=== PATIENT | female | born 1980 | race Caucasian/White ===

== ENCOUNTER 2023-09-04 15:35 | Inpatient (IN) | payer BC, MEDICARE ==
[~2023-09-04] VITALS: Ht 167.6 cm; Wt 84.0 kg
[~2023-09-04 15:35] MED LIST: ACYC-129 PO; ALPR0.5T9 PO; FLUC100T PO; LAMO25TA5 PO; LITH300T5 PO; OLAN2.5T28 PO; OLAN5TAB75 PO
[2023-09-04] MEDS ORDERED: acetaminophen 325mg tablet PO PRN ×2 (21:50)
[2023-09-04] MEDS ORDERED: loperamide 2mg capsule PO PRN (21:50)
[2023-09-04] MEDS ORDERED: mag hydrox/Alum hydrox/simeth 30ml oral suspension PO PRN (21:50)
[2023-09-04] MEDS ORDERED: magnesium hydroxide 30ml (MOM) UD suspension PO PRN (21:50)
[2023-09-05 01:47] VITALS: RESP 16; O2SAT 99
[2023-09-05 01:53] VITALS: BP 146/81; PULSE 72; RESP 16; TEMP 97.8; O2SAT 99
[2023-09-05] MEDS: LORazepam 1 MG tablet PO PRN ×3 (02:46→20:07)
--- NOTE | 2023-09-05 03:00 | NUR ---
Client had 1 mg Ativan Tab PO at 22:30 and 03:00.
[2023-09-05] MEDS ORDERED: IBUP-1986 PO (03:04)
--- NOTE | 2023-09-05 05:14 | NUR ---
ADMIT NOTE: Client was transferred from [facility] and arrived on the unit at 21:20. She was extremely anxious about admission and voiced many paranoid delusions. Client asked "Am I ever going to be able to leave? Are you all going to keep me here forever?' Client watched someone walking in the luna and asked "Am I going to look like him?" She was hesitant to take 1 mg Ativan Tab PO for anxiety and stated "Will I ever wake up again?" Client has a longstanding mental health history and has been admitted to [facility], [place], and [facility]. She is pleasant, but guarded. Client was admitted for depression, but paranoid delusions and anxiety seem more compelling at this time. Client took a shower and changed into green scrubs, had a snack, and went to sleep after admit assessment.
[2023-09-05 07:00] VITALS: RESP 16; O2SAT 99
[2023-09-05 08:00] VITALS: BP 127/82; PULSE 106; RESP 16; TEMP 98.8; O2SAT 99
[2023-09-05 09:26] LABS: CHOL/HDL RATIO 4.4 (0.00-4.99); CHOLESTEROL 155 MG/DL (0-200); HDL CHOLESTEROL 35 MG/DL (35-60); LDL CHOLESTEROL 96 MG/DL (50-100); TRIGLYCERIDES 117 MG/DL (20-135)
[2023-09-05 09:29] LABS: HEMOGLOBIN A1C 5.3 % (4.5-6.2)
--- NOTE | 2023-09-05 16:23 | NUR ---
Nursing Progress Note Patient was transferred from [facility]. She was extremely anxious about admission and voiced many paranoid delusions. Patient asked "Am I ever going to be able to leave? Are you all going to keep me here forever?' Patient watched someone walking in the luna and asked "Am I going to look like him?" She was hesitant to take 1 mg Ativan Tab PO for anxiety and stated "Will I ever wake up again?" Patient has a longstanding mental health history and has been admitted to [facility], [place], and [facility]. She is pleasant, but guarded. Patient was admitted for depression, but paranoid delusions and anxiety seem more compelling at this time. Patient took a shower and changed into green scrubs, had a snack, and went to sleep after admit assessment. Interventions: Maintained a safe and supportive environment, attempted to orient to reality, provided clear and simple instructions, monitored behaviors and provided intervention as needed, provided active listening and positive encouragement, and maintained Q 15min safety checks. Response: This morning patient was very anxious and emotional. It took 2 phlebotomists and 1 RN 20 minutes to have her blood drawn. Patient then asked for some anxiety medication. RN gave patient 1 mg Ativan in a med cup. Patient asks RN. "Is this going to hurt me?" RN explained that the med would help her relax and explains she had the same medication around 6 hours prior. Patient tearful and frightened. Patient finally took the medication. As she was taking med, the RN turned her head and coughed. Patient fearfully asked why RN coughed while she was taking her med. RN stated "Because I have a cough." Patient spoke to her family all day today and by the afternoon patient was happy and appeared more normal. Patient is going to take a shower after another patient is done. Plan : Pt. requires interruption of current crisis, medication adjustments, and a safe and supportive environment.
[2023-09-05 19:17] VITALS: RESP 18; O2SAT 99
[2023-09-05 19:20] VITALS: BP 110/92; PULSE 124; RESP 18; TEMP 98.1; O2SAT 99
--- NOTE | 2023-09-06 00:01 | NUR ---
Nursing Progress Note Problem; Patient was transferred from [facility]. She was extremely anxious about admission and voiced many paranoid delusions. Patient asked "Am I ever going to be able to leave? Are you all going to keep me here forever?' Patient watched someone walking in the luna and asked "Am I going to look like him?" She was hesitant to take 1 mg Ativan Tab PO for anxiety and stated "Will I ever wake up again?" Patient has a longstanding mental health history and has been admitted to [facility], [place], and [facility]. Interventions: Maintained a safe and supportive environment, attempted to orient to reality, provided clear and simple instructions, monitored behaviors and provided intervention as needed, provided active listening and positive encouragement, and maintained Q 15min safety checks. Educated to Ativan and dose given at HS per her request. She is aware that she can have it twice in 24 hours. Discussed plan of care and assessed her ability to function on the unit and formulate a plan for discharge. Response: The patient was friendly and pleasant when approached for the evening assessment. She is able to make her needs known and is making calls to family members independently. She reports that this evening she is doing "way better" than on admit because she had a dose of ativan in the morning and added, "Ativan got me back on the ground" She admits to mild paranoia that people are talking about her. She denies thoughts to harm herself or others. She denies voices. Her discharge plan is to return home with her and children and reconnect with Dr. Mccullough for follow up. Plan: Continue plan of care.
[2023-09-06 08:00] VITALS: BP 115/83; PULSE 99; RESP 16; TEMP 98.1; O2SAT 99
[2023-09-06] MEDS: risperiDONE 0.5mg tablet PO SCH ×2 (13:33→21:07)
[2023-09-06] MEDS: LORazepam 1 MG tablet PO PRN (14:03)
--- NOTE | 2023-09-06 16:58 | NUR ---
Nursing Progress Note: Problem: Client was transferred from [facility] and arrived on the unit at 21:20. She was extremely anxious about admission and voiced many paranoid delusions. Client asked "Am I ever going to be able to leave? Are you all going to keep me here forever?' Client watched someone walking in the luna and asked "Am I going to look like him?" She was hesitant to take 1 mg Ativan Tab PO for anxiety and stated "Will I ever wake up again?" Interventions: introduced self, maintained a safe and supportive environment, ensured contract for safety, provided clear and simple instructions, attempted to orient to reality, provided active listening and positive encouragement, monitored behaviors and need for intervention, and maintained Q 15 min safety checks. Response: Pt. was up for breakfast and vitals. She has no scheduled meds at this time. Asked her how she was feeling, she said, Umm, fine. What do you mean? Asked her what had brought her here, she states, I think I just got upset. Asked what had upset her, she just stared at me. Asked her again if she knew what had upset her, she said I dont know. Asked her if she was having any SI, she said, No never and denies HI as well. Asked her if she had a discharge plan she shook her head yes. Asked her what it was and she just stared at me. Asked her if she had a home to return to, she said, Yes I do, wait is there a reason I cant go back to my house? She later had an interview with the doctor, meds were ordered and when administering first dose she asked, Am I going to after I take this? Reassured her she was going to be ok, she states, I just feel like I am going to , its been nothing but stress since August 25. I had a stressful event happen in my life she then stopped talking and stared at me, told her if she didnt wanna talk about it was fine she said Whats fine. Talk about what? The football game on TV was talking about giving someone a concussion, she said, See right there, I think theyre talking about me getting a concussion. Am I going to get one? Am I physically safe here? She then becomes tearful stating, I dont get it, why is this happening? I am so scared. I know the things I am thinking arent right and I sound crazy but the thoughts seem right to me. She is labile, has thought insertion and thought blocking, as well as paranoia. -Appearance: casually groomed -Eye contact: fair -Mood: calm -Affect: labile -Speech: WNL -Thought Process: impaired -A/V/H: denies -SI/HI: denies -ADLs: independent with little prompting -Insight: fair -Judgement: poor Plan: Pt. continues to require a safe and structured environment for further stabilization. Her current symptoms would make her a high risk for safety and re-hospitalization if discharged at this time.
[2023-09-06 19:00] VITALS: RESP 17; O2SAT 99
[2023-09-06 20:00] VITALS: BP 124/75; PULSE 79; RESP 17; TEMP 97.2; O2SAT 93
[2023-09-07] MEDS: LORazepam 1 MG tablet PO PRN ×2 (00:28→22:57)
--- NOTE | 2023-09-07 05:33 | NUR ---
Nursing Progress Note: Problem: Client was transferred from [facility] and arrived on the unit at 21:20. She was extremely anxious about admission and voiced many paranoid delusions. Client asked "Am I ever going to be able to leave? Are you all going to keep me here forever?' Client watched someone walking in the luna and asked "Am I going to look like him?" She was hesitant to take 1 mg Ativan Tab PO for anxiety and stated "Will I ever wake up again?" Interventions: introduced self, maintained a safe and supportive environment, ensured contract for safety, provided clear and simple instructions, attempted to orient to reality, provided active listening and positive encouragement, monitored behaviors and need for intervention, and maintained Q 15 min safety checks. Response: Pt received in her room. Pt was anxious and needing clarification of her voluntary status. Pt was anxious and needed reassurance with her discharge plan. Pt states she will be going home with her and he is preparing for him to come home. Pt states she has multiple stressors in her life but was guarded in the details. She states she in school at this time. Pt states she is scared. She requested blog writer to call her to tell him I love you and Im scared, but later changed her mind. Her plan is to go home when she is stable. She was tearful multiple times during interview but was guarded in the content. She requested to obtain some phone numbers from her cell phone and blog writer provided. She will be needing to contact her school to update them on her current health status. At 2330hours, patient woke up from a nightmare. She stated that she thought her roommate had fallen and checked on her. She needed reassurance if it was ok to check on her roommate. She stated she was anxious and practiced some deep breathing. She was offered Ativan but then refused the medication. She laid down and attempted to go back to sleep. She told the clinical psychologist licensed that she wasnt able to sleep approximately 0020hours. Agriculture Specialist provided Ativan as ordered and medication was effective. Plan: Pt. continues to require a safe and structured environment for further stabilization. Her current symptoms would make her a high risk for safety and re-hospitalization if discharged at this time.
[2023-09-07 07:00] VITALS: RESP 16; O2SAT 98
[2023-09-07] MEDS: risperiDONE 0.5mg tablet PO SCH ×2 (07:29→20:48)
[2023-09-07 08:00] VITALS: BP 130/80; PULSE 87; RESP 16; TEMP 97.2; O2SAT 98
--- NOTE | 2023-09-07 16:39 | NUR ---
Nursing Progress Note: Problem: Client was transferred from [facility] and arrived on the unit at 21:20. She was extremely anxious about admission and voiced many paranoid delusions. Client asked "Am I ever going to be able to leave? Are you all going to keep me here forever?' Client watched someone walking in the luna and asked "Am I going to look like him?" She was hesitant to take 1 mg Ativan Tab PO for anxiety and stated "Will I ever wake up again?" Interventions: Maintained a safe and supportive environment, ensured contract for safety, provided clear and simple instructions, attempted to orient to reality, provided active listening and positive encouragement, monitored behaviors and need for intervention, and maintained Q 15 min safety checks. Response: Pt. was up for breakfast and vitals. She showered this morning before breakfast. Took meds with some hesitation, cont. to ask, Am I going to be ok taking these? Is something going to happen to me? and are these going to help me get better so I can go home? She then took her medications. Afterwards she said, See, hear all the people talking out there, I am feeling like everything being said by everyone is about me, that they are directing it all towards me, like everyone is talking about me, its not true right? They are just talking to each other and none of it has to do with me right? Asked her if she felt like thoughts are put in her head, she said Ya, like something telling me that everyone is talking about me, all the conversations I hear are about me, but theyre not right? This is a normal feeling for what I am going through right now right? She is friendly, paranoid and has some thought insertion with fair insight into it not being reality. She is less tearful, and more aware of her situation today. -Appearance: casually groomed -Eye contact: good -Mood: anxious at times -Affect: congruent with mood -Speech: WNL -Thought Process: impaired -Thought content: paranoia, thought insertion -A/V/H: denies -SI/HI: denies -ADLs: independent -Insight: fair -Judgement: poor
[2023-09-07 19:00] VITALS: RESP 16; O2SAT 100
[2023-09-07 20:00] VITALS: BP 114/73; PULSE 109; RESP 16; TEMP 98.1; O2SAT 100
--- NOTE | 2023-09-08 05:31 | NUR ---
Nursing Progress Note: Problem: Client was transferred from [facility] and arrived on the unit at 21:20. She was extremely anxious about admission and voiced many paranoid delusions. Client asked "Am I ever going to be able to leave? Are you all going to keep me here forever?' Client watched someone walking in the luna and asked "Am I going to look like him?" She was hesitant to take 1 mg Ativan Tab PO for anxiety and stated "Will I ever wake up again?" Interventions: introduced self, maintained a safe and supportive environment, ensured contract for safety, provided clear and simple instructions, attempted to orient to reality, provided active listening and positive encouragement, monitored behaviors and need for intervention, and maintained Q 15 min safety checks. Response: Pt received in her room. She is in a better mood. She states she will be discharging tomorrow to her home with her . She briefly cried because she stated was scared. She states she will be planning to talk with Dr. Garcia tomorrow with her to formulate a plan so she doesnt return prematurely. She states her previous hospitalization, she left too soon and quickly returned. She attended snack this evening. She was compliant with her medications. She requested her Ativan this shift and meds were effective. She was having difficulty staying asleep and requested tea. She was able to resume sleeping. Plan: Pt. continues to require a safe and structured environment for further stabilization. Her current symptoms would make her a high risk for safety and re-hospitalization if discharged at this time.
[2023-09-08 07:00] VITALS: RESP 16; O2SAT 98
[2023-09-08] MEDS: risperiDONE 0.5mg tablet PO SCH (07:22)
[2023-09-08 07:40] LABS: HBSAG SCREEN Negative (Negative); HEP B CORE AB, IGM Negative (Negative); HEP B CORE AB, TOT Negative (Negative)
[2023-09-08 08:00] VITALS: BP 112/70; PULSE 86; RESP 16; TEMP 98.1; O2SAT 98
[2023-09-08] MEDS ORDERED: RISP1TAB98 PO (11:25)
[2023-09-08] MEDS ORDERED: LAMO25TA5 PO (11:25)
[2023-09-08] MEDS ORDERED: LITH300T5 PO (11:25)
[2023-09-08] MEDS ORDERED: ATI1T PO (11:25)
--- NOTE | 2023-09-08 15:42 | NUR ---
Nursing Progress Note: Problem: Client was transferred from [facility] and arrived on the unit at 21:20. She was extremely anxious about admission and voiced many paranoid delusions. Client asked "Am I ever going to be able to leave? Are you all going to keep me here forever?' Client watched someone walking in the luna and asked "Am I going to look like him?" She was hesitant to take 1 mg Ativan Tab PO for anxiety and stated "Will I ever wake up again?" Interventions: Maintained a safe and supportive environment, ensured contract for safety, provided clear and simple instructions, attempted to orient to reality, provided active listening and positive encouragement, monitored behaviors and need for intervention, and maintained Q 15 min safety checks. Response: Pt. was up for breakfast and vitals. Spoke with her at bedside, asked her how she was doing she stated, I am ok. Supposed to go home today. She then got tearful. Asked her why she was crying when talking about going home she said, I am scared to go back because of the uncertainty and hoping that all gets fixed. Asked her what she was referring to when she says all gets fixed she said, Marital things, me and my are trying to put it aside and got to therapy. Asked her to elaborate, she said, Well she paused for a long period of time staring at me then said, I have been feeling like he is cheating or has cheated. For a while I have noticed different things about him, but when I try to talk to him about it he says no he didnt. I am insecure and can be jealous, I want to believe him but for some reason I dont. The things I notice arent his normal things. Then my cousin that dies she was my support person. I would talk to her about everything and now I dont have her to talk to. My is a good father, he works hard and takes care of me and our kids, but I just feel he isnt being honest and I just want him to be honest. So he said we could do therapy, we are supposed to talk to Dr. Magallanes today and make a plan. I dont want to leave him and I want to work through whatever is going on but I feel like hes not being truthful. She took meds without complication, she is friendly and cooperative with care. Tearful at times, reports some anxiety but has been able to work through the episodes without PRNs. She has had no noted/reported bx issues. -Appearance: casually groomed -Eye contact: good -Mood: anxious and tearful at times -Affect: congruent with mood -Speech: WNL -Thought Process: intact -Thought content: future focused -A/V/H: denies -SI/HI: denies -ADLs: independent -Insight: fair -Judgement: fair Plan: Pt. discharged home at 1304. Belongings were inventoried with pt. and tech and signed for, nurse to go over discharged instructions and meds. Pt. verbalized understanding. Pt. picked up by to return home.
[2023-09-09] MEDS ORDERED: lamoTRIgine 25mg tablet PO SCH (08:00)
== END 2023-09-08 13:04 | disposition home or self-care (01) | DRG 885 ==
LOC: ADULT MH 15:35
PROVIDERS: ADMIT Psychiatry & Neurology Psychiatry; ATTEND Psychiatry & Neurology Psychiatry
DX: F31.30 Bipolar disorder, current episode depressed, mild or moderate severity, unspecified (principal); Z94.84 Stem cells transplant status; E11.9 Type 2 diabetes mellitus without complications; G24.4 Idiopathic orofacial dystonia; G35 Multiple sclerosis; I10 Essential (primary) hypertension; Z91.041 Radiographic dye allergy status; Z88.0 Allergy status to penicillin; Z98.82 Breast implant status
CPT/HCPCS: 36415; 80061; 83036; 86704; 86705; 87081; 87340

== ENCOUNTER 2024-11-21 19:56 | Inpatient (IN) | payer BC, MEDICARE ==
[~2024-11-21] VITALS: Ht 170.2 cm; Wt 79.2 kg
[~2024-11-21 19:56] MED LIST changes: -ACYC-129 PO; -ALPR0.5T9 PO; +ATI1T PO; -FLUC100T PO; -OLAN2.5T28 PO; -OLAN5TAB75 PO; +RISP-31 PO
[2024-11-22] MEDS ORDERED: lamoTRIgine 25mg tablet PO SCH (15:20)
[2024-11-22] MEDS: risperiDONE 2mg tablet PO SCH (16:05)
[2024-11-22] MEDS: lamoTRIgine 25mg tablet PO SCH (16:05)
[2024-11-22] MEDS: hydrOXYzine 25 MG tablet PO PRN (16:25)
[2024-11-22] MEDS ORDERED: lurasidone 20mg tablet PO SCH (17:00)
[2024-11-22 20:00] VITALS: BP 118/94; PULSE 101; RESP 20; TEMP 97.6; O2SAT 100
[2024-11-22] MEDS ORDERED: risperiDONE 2mg tablet PO SCH (20:00)
[2024-11-22] MEDS ORDERED: lithium carbonate 450mg CR tablet PO SCH (21:00)
[2024-11-22] MEDS: traZODone 50mg tablet PO PRN (22:33)
[2024-11-23] MEDS: LORazepam 1 MG tablet PO ONE ×2 (03:06→22:40)
[2024-11-23] MEDS ORDERED: acetaminophen 325mg tablet PO PRN ×2 (06:35→08:05)
[2024-11-23 07:30] VITALS: BP 122/80; PULSE 100; RESP 16; TEMP 97.6; O2SAT 99
[2024-11-23] MEDS: magnesium hydroxide 30ml (MOM) UD suspension PO PRN (07:49)
[2024-11-23] MEDS ORDERED: loperamide 2mg capsule PO PRN (08:05)
[2024-11-23] MEDS: lurasidone 20mg tablet PO SCH (17:11)
[2024-11-23 17:17] VITALS: BP 140/95; PULSE 104; RESP 14; O2SAT 100
[2024-11-23 20:00] VITALS: BP 126/82; PULSE 100; RESP 16; TEMP 97.9; O2SAT 100
[2024-11-23] MEDS: traZODone 150mg tablet PO SCH (20:16)
[2024-11-23] MEDS: risperiDONE 2mg tablet PO SCH (20:16)
[2024-11-24 07:00] VITALS: RESP 14
[2024-11-24] MEDS ORDERED: LORazepam 0.5 MG tablet PO SCH (08:00)
[2024-11-24] MEDS: LORazepam 0.5 MG tablet PO SCH (08:42)
[2024-11-24 08:50] VITALS: BP 120/90; PULSE 98; RESP 16; TEMP 99; O2SAT 96
[2024-11-24 09:09] LABS: CHOL/HDL RATIO 3.2 (0.00-4.99); CHOLESTEROL 148 MG/DL (0-200); HDL CHOLESTEROL 46 MG/DL (35-60); LDL CHOLESTEROL 91 MG/DL (50-100); TRIGLYCERIDES 64 MG/DL (20-135)
[2024-11-24 09:32] LABS: HEMOGLOBIN A1C 4.7 % (4.5-6.2)
[2024-11-24 19:00] VITALS: RESP 18; O2SAT 99
[2024-11-24 20:00] VITALS: BP 119/75; PULSE 115; RESP 18; TEMP 98.6; O2SAT 99
[2024-11-25 07:00] VITALS: RESP 15; O2SAT 99
[2024-11-25 07:18] VITALS: BP 125/69; PULSE 102; RESP 15; TEMP 98.2; O2SAT 99
[2024-11-25] MEDS: polyethylene glycol 3350 17gm powd pack PO SCH (10:12)
[2024-11-25 19:00] VITALS: RESP 20; O2SAT 96
[2024-11-25 19:45] VITALS: BP 125/80; PULSE 75; RESP 20; TEMP 98; O2SAT 96
[2024-11-25] MEDS: traZODone 50mg tablet PO SCH (20:45)
[2024-11-25] MEDS: LORazepam 0.5 MG tablet PO SCH (20:45)
[2024-11-26 07:00] VITALS: RESP 16; O2SAT 97
[2024-11-26 08:00] VITALS: BP 114/78; PULSE 99; RESP 16; TEMP 97.7; O2SAT 97
[2024-11-26 19:00] VITALS: RESP 16; O2SAT 98
[2024-11-26 20:00] VITALS: BP 118/77; PULSE 75; RESP 16; TEMP 97.3; O2SAT 96
[2024-11-26] MEDS: lamoTRIgine 25mg tablet PO SCH (21:27)
[2024-11-27 07:00] VITALS: RESP 16; O2SAT 96
[2024-11-27 08:15] VITALS: BP 117/74; PULSE 92; RESP 16; TEMP 98.4; O2SAT 96
[2024-11-27 19:48] VITALS: RESP 16; O2SAT 99
[2024-11-27 20:02] VITALS: BP 134/90; PULSE 98; RESP 16; TEMP 98.1; O2SAT 99
[2024-11-27 22:28] VITALS: BP 108/73; PULSE 61; RESP 18; TEMP 97.7; O2SAT 98
[2024-11-28 07:00] VITALS: BP 124/80; PULSE 94; RESP 16; TEMP 96.7; O2SAT 97
[2024-11-28] MEDS: LORazepam 0.5 MG tablet PO SCH (07:02)
[2024-11-28] MEDS ORDERED: TRAZ-251 PO (12:51)
[2024-11-28] MEDS ORDERED: HYDR-3686 PO (12:51)
[2024-11-28] MEDS ORDERED: RISP-32 PO (12:51)
[2024-11-28] MEDS ORDERED: LAMO25TA5 PO (12:51)
[2024-11-28] MEDS: hydrOXYzine 25 MG tablet PO SCH (13:05)
[2024-11-28 19:00] VITALS: RESP 18; O2SAT 96
[2024-11-28 19:45] VITALS: BP 145/83; PULSE 88; RESP 18; TEMP 98; O2SAT 96
[2024-11-29 07:00] VITALS: RESP 14; O2SAT 98
[2024-11-29 08:00] VITALS: BP 136/85; PULSE 72; RESP 14; TEMP 97; O2SAT 98
== END 2024-11-29 14:55 | disposition home or self-care (01) | DRG 885 ==
LOC: UNDOADMIN 11-22 10:28 → ADULT MH 11-22 10:28
PROVIDERS: ADMIT Psychiatry & Neurology Psychiatry; ATTEND Psychiatry & Neurology Psychiatry
PROC: GZHZZZZ Group Psychotherapy (ICD-10-PCS; principal; 2024-11-22)
PROC: GZ51ZZZ Individual Psychotherapy, Behavioral (ICD-10-PCS; 2024-11-22)
DX: F20.0 Paranoid schizophrenia (principal); F31.9 Bipolar disorder, unspecified; G30.9 Alzheimer's disease, unspecified; K59.00 Constipation, unspecified; F41.9 Anxiety disorder, unspecified; F02.80 Dementia in other diseases classified elsewhere, unspecified severity, without behavioral disturbance, psychotic disturbance, mood disturbance, and anxiety; Z79.899 Other long term (current) drug therapy; Z88.0 Allergy status to penicillin; Z91.041 Radiographic dye allergy status
CPT/HCPCS: 36415; 80061; 83036; 84443; 87081; Q0177

== ENCOUNTER 2024-11-30 15:52 | Emergency (ER) | payer BC, MEDICARE ==
[~2024-11-30] VITALS: Ht 172.7 cm; Wt 82.2 kg
[~2024-11-30 15:52] MED LIST changes: -ATI1T PO; +HYDR-3686 PO; -LITH300T5 PO; -RISP-31 PO; +RISP-32 PO; +TRAZ-251 PO
[2024-11-30 15:56] VITALS: BP 163/103; PULSE 63; RESP 18; TEMP 97.8; O2SAT 98
[2024-11-30 16:50] LABS: BASOPHILS # (AUTO) 0.1 X10'3 (0-0.2); BASOPHILS % (AUTO) 0.6 % (0-1); EOSINOPHILS # (AUTO) 0.1 X10'3 (0-0.9); EOSINOPHILS % (AUTO) 1.3 % (0-6); HEMATOCRIT 39.4 % (35.0-45.0); HEMOGLOBIN 13.6 g/dl (12.0-16.0); LYMPHOCYTES # (AUTO) 1.9 X10'3 (1.1-4.8); MEAN CORPUSCULAR HEMOGLOBIN 31.7 PG (27.0-31.0); MEAN CORPUSCULAR HGB CONC 34.4 g/dL (33.0-36.5); MEAN CORPUSCULAR VOLUME 92.2 FL (78-98); MEAN PLATELET VOLUME 7.5 FL (7.4-10.4); MONOCYTES # (AUTO) 0.5 X10'3 (0-0.9); MONOCYTES % (AUTO) 5.3 % (2-12); NEUTROPHILS # (AUTO) 7.2 X10'3 (1.8-7.7); NEUTROPHILS % (AUTO) 73.8 % (42-75); PLATELET COUNT 260 X10'3 (140-440); RED BLOOD COUNT 4.27 X10'6 (4.20-5.60); RED CELL DISTRIBUTION WIDTH 13.6 % (11.5-14.5); WHITE BLOOD COUNT 9.8 X10'3 (4.5-11.0)
[2024-11-30 17:16] LABS: ALANINE AMINOTRANSFERASE 25 U/L (12-78); ALBUMIN 4.1 G/DL (3.4-5.0); ALBUMIN/GLOBULIN RATIO 1.1 (1.1-1.5); ALKALINE PHOSPHATASE 84 IU/L (46-116); ANION GAP 9 (8-16); ASPARTATE AMINO TRANSFERASE 14 U/L (10-37); BILIRUBIN,TOTAL 0.7 MG/DL (0.1-1.0); BLOOD UREA NITROGEN 13 MG/DL (7-18); BUN/CREATININE RATIO 17.6 (10.0-20.0); CALCIUM 9.1 MG/DL (8.5-10.1); CHLORIDE 102 MMOL/L (99-107); CREATININE 0.74 MG/DL (0.40-0.90); GLUCOSE 115 MG/DL (70-104); PRO BRAIN NATRIURETIC PEPTIDE 51 PG/ML (0-125); SODIUM 137 MMOL/L (135-145); TOTAL CARBON DIOXIDE 26.3 MMOL/L (24-32); TOTAL PROTEIN 7.8 G/DL (6.4-8.2); eCRCL 99 ML/MIN; eGFR 86 ML/MIN
== END 2024-11-30 20:55 | disposition home or self-care (01) ==
LOC: ER 15:54
DX: F41.9 Anxiety disorder, unspecified (principal); G30.9 Alzheimer's disease, unspecified; F02.84 Dementia in other diseases classified elsewhere, unspecified severity, with anxiety; F31.9 Bipolar disorder, unspecified; Z88.0 Allergy status to penicillin
CPT/HCPCS: 36415; 80053; 83880; 84484; 85025; 99283

== ENCOUNTER 2024-11-30 21:50 | Emergency (ER) | payer BC, MEDICARE ==
[~2024-11-30] VITALS: Ht 167.6 cm; Wt 69.0 kg
[2024-11-30 21:55] VITALS: BP 115/98; PULSE 69; RESP 15; TEMP 98.6; O2SAT 96
== END 2024-12-01 00:34 | disposition home or self-care (01) ==
LOC: ER 21:50
DX: Z00.00 Encounter for general adult medical examination without abnormal findings (principal); G30.9 Alzheimer's disease, unspecified; F02.83 Dementia in other diseases classified elsewhere, unspecified severity, with mood disturbance; F31.9 Bipolar disorder, unspecified; F41.9 Anxiety disorder, unspecified; Z88.0 Allergy status to penicillin
CPT/HCPCS: 99281